=== PATIENT | female | born 1975 | race American Indian/Alaskan Native ===

== ENCOUNTER 2017-02-20 12:51 | Emergency (ER) | payer OTHER ==
[2017-02-20] MEDS ORDERED: TYLENOL ONE (13:55)
[2017-02-20] MEDS ORDERED: TYLENOL PO ONE (13:58)
[2017-02-20 14:49] LABS: Bilirubin,Urine NEG (Negative); Blood,Urine NEG (Negative); Leukocyte Esterase,Urine NEG (Negative); Mucus,Urine FEW /HPF; Nitrite,Urine NEG (Negative); Protein,Urine <15 mg/dL mg/dL (Negative); Urobilinogen,Urine < 2.0 mg/dL (<2.0)
[2017-02-20 14:55] LABS: Bacteria,Urine 1+ /HPF (Negative); Ketones,Urine NEG (Negative); RBC,Urine < 1.0 /HPF (0.0-6.0)
[2017-02-20 15:07] LABS: Basophils % (Auto) 0.4 % (0.0-1.8); Eosinophils % (Auto) 0.3 % (0.0-4.3); Hematocrit 47.9 % (30.3-42.9); Hemoglobin 16.4 gm/dl (10.1-14.3); Mean Corpuscular HGB Conc 34 % (30-34); Mean Corpuscular Hemoglobin 31 pg (28-32); Mean Corpuscular Volume 91 fl (79-97); Platelet Count 209 K/mm3 (140-440); Red Blood Count 5.28 M/mm3 (3.65-5.03); Red Cell Distribution Width 12.7 % (13.2-15.2); White Blood Count 8.8 K/mm3 (4.5-11.0)
[2017-02-20 15:12] LABS: Anion Gap 21 mmol/L; Blood Urea Nitrogen 12 mg/dL (7-17); Calcium 9.5 mg/dL (8.4-10.2); Carbon Dioxide 23 mmol/L (22-30); Chloride 98.8 mmol/L (98-107); Glucose 118 mg/dL (65-100); Potassium 4.2 mmol/L (3.6-5.0); Sodium 139 mmol/L (137-145)
[2017-02-20] MEDS ORDERED: REGLAN ONE (18:07)
[2017-02-20] MEDS ORDERED: TORADOL ONE (18:07)
[2017-02-20] MEDS ORDERED: NACL 0.9% 1000 ML 1,000 ML ONE (18:07)
[2017-02-20] MEDS ORDERED: REGLAN IV ONE (18:09)
[2017-02-20] MEDS ORDERED: NACL 0.9% 1000 ML 1,000 ML IV ONE (18:09)
[2017-02-20] MEDS ORDERED: TORADOL IV ONE (18:09)
--- NOTE | 2017-02-20 18:22 | Emergency Department Report ---
ED Headache HPI - General Chief Complaint: Headache Stated Complaint: LT SIDE NUMB/ABD PAIN/NAUSEA/HEADACHE Time Seen by Provider: 02/20/17 18:04 Source: patient Exam Limitations: no limitations - History of Present Illness Timing/Duration: 1 week Quality: moderate Head Injury Location: frontal, temporal Recent Head Trauma: frequent headaches, chronic headaches Associated Symptoms: denies: confusion, fatigue, facial pain, fever/chills, flushing, loss of consciousness, nausea/vomiting, nasal congestion, nasal drainage, numbness in legs/feet, seizures, sinus infection, stiff neck, vision changes Allergies/Adverse Reactions: Allergies No Known Allergies Allergy (Verified 02/20/17 14:09) Home Medications: Ambulatory Orders Azithromycin [Zithromax TAB] 500 mg PO QDAY #3 tablet 02/20/17 Canagliflozin [Invokana] 300 mg PO DAILY 02/20/17 Lisinopril [Zestril] 20 mg PO QDAY 02/20/17 Loratadine [Claritin] 10 mg PO DAILY 02/20/17 Lovastatin [Altoprev] 20 mg PO QPM 02/20/17 Prednisone [predniSONE (Christina) ER TAB] 50 mg PO QDAY #5 tablet. 02/20/17 metFORMIN [Glucophage] 850 mg PO BID 02/20/17 ED Review of Systems ROS: Stated complaint: LT SIDE NUMB/ABD PAIN/NAUSEA/HEADACHE Other details as noted in HPI Constitutional: denies: chills, fever Eyes: denies: eye pain, eye discharge, vision change ENT: denies: ear pain, throat pain Respiratory: denies: cough, shortness of breath, wheezing Cardiovascular: denies: chest pain, palpitations Endocrine: no symptoms reported Gastrointestinal: denies: abdominal pain, nausea, diarrhea Genitourinary: denies: urgency, dysuria, discharge Musculoskeletal: denies: back pain, joint swelling, arthralgia Skin: denies: rash, lesions Neurological: denies: headache, weakness, paresthesias Psychiatric: denies: anxiety, depression Hematological/Lymphatic: denies: easy bleeding, easy bruising ED Past Medical Hx - Past Medical History Hx Diabetes: Yes Additional medical history: IBS, Venous insuff., d.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 - Surgical History Hx Cholecystectomy: Yes Additional Surgical History: C SECT, HYSTERECTOMY, HEEL SPUR REPAIR - Social History Smoking Status: Never Smoker Substance Use Type: None - Medications Home Medications: Home Medications Medication Instructions Recorded Confirmed Last Taken Type Azithromycin [Zithromax TAB] 500 mg PO QDAY #3 tablet 02/20/17 Unknown Rx Canagliflozin [Invokana] 300 mg PO DAILY 02/20/17 02/20/17 Unknown History Lisinopril [Zestril] 20 mg PO QDAY 02/20/17 02/20/17 Unknown History Loratadine [Claritin] 10 mg PO DAILY 02/20/17 02/20/17 Unknown History Lovastatin [Altoprev] 20 mg PO QPM 02/20/17 02/20/17 Unknown History Prednisone [predniSONE (Christina) ER 50 mg PO QDAY #5 tablet. 02/20/17 Unknown Rx TAB] metFORMIN [Glucophage] 850 mg PO BID 02/20/17 02/20/17 Unknown History ED Physical Exam - General Limitations: No Limitations General appearance: alert, in no apparent distress - Head Head exam: Present: atraumatic, normocephalic, normal inspection - Eye Eye exam: Present: normal appearance, PERRL, EOMI - ENT ENT exam: Present: normal exam, mucous membranes moist - Neck Neck exam: Present: normal inspection - Respiratory Respiratory exam: Present: normal lung sounds bilaterally. Absent: respiratory distress - Cardiovascular Cardiovascular Exam: Present: regular rate, normal rhythm. Absent: systolic murmur, diastolic murmur, rubs, gallop - GI/Abdominal GI/Abdominal exam: Present: soft, normal bowel sounds - Extremities Exam Extremities exam: Present: normal inspection, full ROM - Back Exam Back exam: Present: normal inspection, full ROM - Neurological Exam Neurological exam: Present: alert, oriented X3, CN II-XII intact, normal gait, reflexes normal - Psychiatric Psychiatric exam: Present: normal affect, normal mood - Skin Skin exam: Present: warm, dry, intact, normal color. Absent: rash ED Course Vital Signs 02/20/17 02/20/17 02/20/17 13:51 14:00 17:56 Temperature 98.4 F Pulse Rate 98 H Respiratory 16 Rate Blood Pressure 131/91 Blood Pressure [Left] O2 Sat by Pulse 95 Oximetry 02/20/17 02/20/17 02/20/17 18:00 18:02 18:04 Temperature Pulse Rate 105 H Respiratory 15 16 Rate Blood Pressure Blood Pressure 128/68 [Left] O2 Sat by Pulse 95 99 99 Oximetry 02/20/17 02/20/17 02/20/17 18:06 18:10 18:16 Temperature Pulse Rate Respiratory Rate Blood Pressure Blood Pressure [Left] O2 Sat by Pulse 95 96 96 Oximetry 02/20/17 02/20/17 02/20/17 18:20 18:26 18:30 Temperature Pulse Rate Respiratory Rate Blood Pressure 116/81 Blood Pressure [Left] O2 Sat by Pulse 95 95 95 Oximetry 02/20/17 02/20/17 02/20/17 19:30 19:36 19:40 Temperature Pulse Rate Respiratory Rate Blood Pressure 112/73 112/73 Blood Pressure [Left] O2 Sat by Pulse 96 96 95 Oximetry 02/20/17 02/20/17 02/20/17 19:45 19:50 20:00 Temperature Pulse Rate 99 H Respiratory Rate Blood Pressure 113/76 113/76 Blood Pressure [Left] O2 Sat by Pulse 94 93 Oximetry ED Medical Decision Making - Lab Data Result diagrams: 02/20/17 14:17 02/20/17 14:17 - Medical Decision Making Patient doing well, pain free at this time , ct head and labs negative. will dc with follow up with PMD. Critical care attestation.: If time is entered above; I have spent that time in minutes in the direct care of this critically ill patient, excluding procedure time. ED Disposition Clinical Impression: Headache, Mucocele of maxillary sinus Disposition: DISCHARGED TO HOME OR SELFCARE Is pt being admited?: No Does the pt Need Aspirin: No Condition: Good Instructions: Acute Headache (ED), Sinusitis (ED) Prescriptions: Azithromycin [Zithromax TAB] 500 mg PO QDAY #3 tablet Prednisone [predniSONE (Christina) ER TAB] 50 mg PO QDAY #5 tablet. Referrals: ROBERT WALLS MD [Primary Care Provider] - 3-5 Days Forms: Work/School Release Form(ED) Time of Disposition: 21:14
[2017-02-20 20:00] VITALS: BP 113/76
--- NOTE | 2017-02-20 20:40 | Cat Scan Report ---
FINAL REPORT EXAM: CT HEAD/BRAIN WO CON HISTORY: Headache TECHNIQUE: Standard unenhanced CT of the head at 5.0 millimeter axial increments PRIORS: None. FINDINGS: The ventricular system is normal in size and configuration. There is no evidence for parenchymal volume loss. There is no evidence for mass lesion, mass effect, midline shift, acute intracranial hemorrhage, or acute ischemia/ infarction. Visualized paranasal sinuses demonstrate a well-defined rounded focus filling much of the left maxillary sinus measuring 2.3 x 1.7 cm. This has a thin calcified border suggesting a chronic process such as mucocele. IMPRESSION: Negative CT of the head. No acute intracranial process noted. 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
== END 2017-02-20 21:23 | disposition home or self-care (01) ==
LOC: ED 12:51
DX: R51 Headache (principal); J34.1 Cyst and mucocele of nose and nasal sinus; E11.9 Type 2 diabetes mellitus without complications; I82.409 Acute embolism and thrombosis of unspecified deep veins of unspecified lower extremity; I87.2 Venous insufficiency (chronic) (peripheral)
CPT/HCPCS: 36415; 70450; 80048; 81001; 82010; 82805; 82962; 85025; 93005; 93010; 96361; 96374; 96375; 99284; J1885; J2765; J7030